=== PATIENT | female | born 2000 | race Caucasian/White ===

== ENCOUNTER 2020-07-04 01:27 | Emergency (ER) | payer BC ==
--- NOTE | 2020-07-04 02:22 | EDM.PDOC ---
ED HPI GENERAL MEDICAL PROBLEM - General Chief Complaint: Abdominal Pain Stated Complaint: POSSIBLE C-DIF HAS HISTORY Time Seen by Provider: 07/04/20 01:40 Source of Information: Reports: Patient History Limitations: Reports: No Limitations - History of Present Illness INITIAL COMMENTS - FREE TEXT/NARRATIVE: Ms. Rogers is a pleasant 19-year-old woman who now presents the ED with a concern of having C. difficile. She states that she was originally diagnosed with C. difficile in February 2018, and that she has been diagnosed with it 5 or 6 times since, although she does not know what type of tests were used to make that diagnosis - whether by NAAT, detection of C. difficile toxin by PCR, or by culture. She states that her most recent diagnosis was around 05/13/2020, that she was on oral vancomycin from then through approximately 06/20/2020. She states that she has been experiencing mucousy bowel movements for the past 4 days, and abdominal cramps since yesterday, 07/03/2020. She has had nausea and a decreased appetite, but no vomiting. No recent fever. No urinary symptoms. She states that she had a leftover tablet of oral vancomycin, therefore took that around 20:00 last night. Here in the ED, the patient is found to be mildly tachycardic at 109 bpm, otherwise, she is hemodynamically stable, afebrile, saturating 97% on room air. Other than her recurrent diarrhea issues, the patient denies having a recent fever, chills, sore throat, ear pain, nasal or sinus congestion, cough, dyspnea, chest pain, palpitations, vomiting, constipation, urinary symptoms, recent weight gain or weight loss, recent bloody bowel movements or black bowel movements, recent joint aches, headaches, or rashes. The patient does not have a PCP. Her Field Assessor is Dr. Steev Leroy, in [place], [place]. She has not received an influenza vaccine this season, and declined an offer to get one here in the ED. Abdominal Pain Score (Numeric/FACES): 7 - Related Data Allergies Allergy/AdvReac Type Severity Reaction Status Date / Time No Known Allergies Allergy Verified 07/04/20 01:44 Past Medical History Respiratory History: Reports: Asthma (suspected, not tested) [employer] WORK[employer] History: Reports: Endometriosis (suspected, not confirmed) Musculoskeletal History: Reports: Fracture (left ankle) - Infectious Disease History Infectious Disease History: Reports: C-Difficile, Chicken Pox, Shingles (suspected, at 17 yrs old) - Past Surgical History HEENT Surgical History: Reports: Eye Surgery (left corneal scar removal), Oral Surgery (dental extractons) Musculoskeletal Surgical History: Reports: Other (See Below) (Left ankle fx resetting x 2) Social & Family History - Tobacco Use Tobacco Use Status *Q: Never Tobacco User Second Hand Smoke Exposure: No - Caffeine Use Caffeine Use: Reports: None - Alcohol Use Alcohol Use History: Yes Alcohol Use Frequency: Socially - Recreational Drug Use Recreational Drug Use: Yes Drug Use in Last 12 Months: Yes Recreational Drug Type: Reports: Marijuana/Hashish (smokes about once a year, last around 07/01/2020) - Living Situation & Occupation Living situation: Reports: Single, Other (Roomate) Occupation: Student ([employer]) ED ROS GENERAL - Review of Systems Review Of Systems: Comprehensive ROS is negative, except as noted in HPI. ED EXAM, GI/ABD - Physical Exam Exam: See Below Exam Limited By: No Limitations General Appearance: Alert, No Apparent Distress, Thin Eyes: Bilateral: Normal Appearance, EOMI Ears: Normal External Exam, Hearing Grossly Normal Nose: Normal Inspection Throat/Mouth: Normal Inspection, Normal Lips, Normal Voice, No Airway Compromise Head: Atraumatic, Normocephalic Neck: Normal Inspection, Full Range of Motion Respiratory/Chest: No Respiratory Distress, Lungs Clear, Normal Breath Sounds, No Accessory Muscle Use Cardiovascular: Normal Peripheral Pulses, No Edema, No Gallop, No JVD, No Murmur, No Rub, Tachycardia (regular) GI/Abdominal Exam: Normal Bowel Sounds, Soft, No Organomegaly, No Distention, No Abnormal Bruit, No Mass, Tender (generalized, non-focal) Back Exam: Normal Inspection, Full Range of Motion, NT Extremities: Normal Inspection, Normal Range of Motion, No Pedal Edema, Normal Capillary Refill Neurological: Alert, Oriented, Normal Cognition, No Motor/Sensory Deficits Psychiatric: Normal Affect Skin Exam: Warm, Dry, Intact, Normal Color, No Rash Course - Vital Signs Last Recorded V/S: Last Vital Signs Temp 37.6 C 07/04/20 01:40 Pulse 109 H 07/04/20 01:40 Resp 16 07/04/20 01:40 BP 116/93 H 07/04/20 01:40 Pulse Ox 97 07/04/20 01:40 Orthostatic Blood Pressure [ 125/81 Standing] Orthostatic Blood Pressure [ 120/81 Sitting] Orthostatic Blood Pressure [ 114/68 Supine] - Orders/Labs/Meds Orders: Active Orders 24 hr Category Date Time Status Orthostatic Vital Signs [RC] STAT Care 07/04/20 02:19 Active Orthostatic Vital Signs [RC] STAT Care 07/04/20 03:33 Active Labs: Laboratory Tests 07/04/20 07/04/20 Range/Units 02:00 02:00 WBC 11.06 H (3.98-10.04) K/mm3 RBC 4.67 (3.98-5.22) M/mm3 Hgb 14.1 (11.2-15.7) gm/dl Hct 43.2 (34.1-44.9) % MCV 92.5 (79.4-94.8) fl MCH 30.2 (25.6-32.2) pg MCHC 32.6 (32.2-35.5) g/dl RDW Std Deviation 43.1 (36.4-46.3) fL Plt Count 341 (182-369) K/mm3 MPV 9.6 (9.4-12.3) fl Neutrophils % (Manual) 58 (40-60) % Band Neutrophils % 0 (0-10) % Lymphocytes % (Manual) 37 (20-40) % Atypical Lymphs % 0 % Monocytes % (Manual) 3 (2-10) % Eosinophils % (Manual) 2 (0.7-5.8) % Basophils % (Manual) 0 L (0.1-1.2) Platelet Estimate Adequate RBC Morph Comment Normal Sodium 139 (136-145) mEq/L Potassium 3.5 (3.5-5.1) mEq/L Chloride 104 (98-107) mEq/L Carbon Dioxide 24 (21-32) mEq/L Anion Gap 14.5 (5-15) BUN 13 (7-18) mg/dL Creatinine 0.9 (0.55-1.02) mg/dL Est Cr Clr Drug Dosing 83.30 mL/min Estimated GFR (MDRD) > 60 (>60) mL/min BUN/Creatinine Ratio 14.4 (14-18) Glucose 93 (74-106) mg/dL Calcium 9.1 (8.5-10.1) mg/dL Magnesium 1.8 (1.8-2.4) mg/dl Total Bilirubin 0.7 (0.2-1.0) mg/dL AST 13 L (15-37) U/L ALT 18 (14-59) U/L Alkaline Phosphatase 52 (46-116) U/L Total Protein 7.8 (6.4-8.2) g/dl Albumin 4.0 (3.4-5.0) g/dl Globulin 3.8 gm/dL Albumin/Globulin Ratio 1.1 (1-2) Meds: Medications Discontinued Medications Generic Name Dose Route Start Last Admin Trade Name Freq PRN Reason Stop Dose Admin Sodium Chloride 1,000 mls @ 999 mls/hr 07/04/20 03:33 07/04/20 03:48 Normal Saline IV 07/04/20 04:33 999 mls/hr ONETIME ONE Administration Ibuprofen 600 mg 07/04/20 02:57 07/04/20 03:16 Motrin PO 07/04/20 02:58 600 mg ONETIME ONE Administration - Re-Assessments/Exams Free Text/Narrative Re-Assessment/Exam: 07/04/20 02:18 As above, the patient has had recurrent episodes of abdominal cramps and diarrhea since February 2018, with a diagnosis of C. difficile at that time, and 5-6 diagnoses since, most recently in late April 2020, treated with oral vancomycin since approximately 05/13/2020 through 06/20/2020, with an additional tablet that she took around 20:00 last night. She states that she has had about 4 days of abdominal cramps with mucousy diarrhea, nausea, and decreased appetite. No recent fever. She is slightly tachycardic here in the ED, and complains of generalized abdominal tenderness to palpation. I have ordered a work-up that includes several blood tests, and orthostatics, however, the patient does not feel that she can give us a stool sample at this time. If she is able to, I will order stool for C. difficile. 07/04/20 03:33 The patient's CBC is remarkable for slight leukocytosis of 11.06, but with 0% bandemia, and the remainder of her CBC being unremarkable. Her CMP is unremarkable. Her magnesium level is within normal limits at 1.8. Her orthostatics are positive. Based on the above, I have ordered a 1 L bolus of NS, to be followed by repeat orthostatics. 07/04/20 05:00 Following 1 L of IV fluid, the patient is no longer orthostatic. She has not been able to provide us a stool sample. 07/04/20 05:03 Test results discussed with the patient. As above, today's work-up, other than the finding of orthostasis, is completely unremarkable. The patient's inability to provide a stool sample speaks strongly against the diagnosis of C. difficile, however, I offered to provide the patient with a stool sample cup that she could take to her PCPs office if she was able to provide a sample. The patient prefers to just follow-up with her PCP later today. Departure - Departure Time of Disposition: 05:04 Disposition: Home, Self-Care 01 Condition: Good Clinical Impression: Abdominal cramps, Abnormal bowel movement, Orthostasis - Discharge Information *PRESCRIPTION DRUG MONITORING PROGRAM REVIEWED*: Not Applicable *COPY OF PRESCRIPTION DRUG MONITORING REPORT IN PATIENT JESUS: Not Applicable Referrals: PCP,None [Primary Care Provider] - Forms: ED Department Discharge Additional Instructions: You were seen in the emergency room after experiencing 4 days of mucousy bowel movements with abdominal cramps since yesterday, along with nausea and a decreased appetite. Work-up in the ER included positional blood pressure checks and several blood tests. Your blood work was entirely normal, with no suggestion of anemia or infection. Your heart rate umberto excessively between lying and standing, a condition known as orthostasis. You were given 1 L of IV fluid, and your heart rate normalized. Going forward, we recommend that you stay adequately hydrated. Gatorade or Powerade are best. Unable to provide a stool sample to test for C. difficile. We recommend that you follow-up with your Field Assessor, Dr. Steve Leroy, for further evaluation in that regard. If any other problems, please do not hesitate to return to the ER. Sepsis Event Note (ED) - Evaluation Sepsis Screening Result: No Definite Risk - Focused Exam Vital Signs: Vital Signs Temp Pulse Resp BP Pulse Ox 07/04/20 01:40 37.6 C 109 H 16 116/93 H 97 - My Orders Last 24 Hours: My Active Orders 07/04/20 02:19 Orthostatic Vital Signs [RC] STAT 07/04/20 03:33 Orthostatic Vital Signs [RC] STAT - Assessment/Plan Last 24 Hours: My Active Orders 07/04/20 02:19 Orthostatic Vital Signs [RC] STAT 07/04/20 03:33 Orthostatic Vital Signs [RC] STAT
[2020-07-04] MEDS ORDERED: Ibuprofen 600 MG Tab PO ONE (02:57)
[2020-07-04] MEDS ORDERED: Sodium Chloride 0.9% 1,000 ML IV ONE (03:33)
== END 2020-07-04 05:16 | disposition home or self-care (01) ==
LOC: JD.ED 01:27
DX: R10.9 Unspecified abdominal pain (principal); R19.15 Other abnormal bowel sounds; J45.909 Unspecified asthma, uncomplicated
CPT/HCPCS: 36415; 80053; 83735; 85007; 85027; 99284; A9270; J7030; 99283

== ENCOUNTER 2024-01-27 07:00 | Inpatient (IN) | payer OTHER, BC ==
[2024-01-27] MEDS ORDERED: Sodium Chloride 0.9% 10 ML Syringe FLUSH PRN (07:13)
[2024-01-27] MEDS ORDERED: Lidocaine 1% 50 ML MDV INJECT PRN (07:13)
[2024-01-27] MEDS ORDERED: Oxytocin/0.9 % Sodium Chloride 30 UNIT/500 ML BAG IV SCH (07:15)
[2024-01-27 07:39] LABS: BASOPHILS PERCENT AUTO 0.3 % (0.0-1.0); EOSINOPHILS ABSOLUTE AUTO 0.2 K/mm3 (0.0-0.4); EOSINOPHILS PERCENT AUTO 1.5 % (0.0-6.0); HEMATOCRIT 32.2 % (37.0-47.0); HEMOGLOBIN 10.5 gm/dl (12.0-16.0); IMMATURE GRAN ABSOLUTE AUTO 0.26 K/mm3 (0.00-0.05); LYMPHOCYTES ABSOLUTE AUTO 2.3 K/mm3 (1.0-4.8); LYMPHOCYTES PERCENT AUTO 17.7 % (24.0-44.0); MEAN CORPUSCULAR HEMOGLOBIN 29.7 pg (28.0-32.0); MEAN CORPUSCULAR HGB CONC 32.6 g/dl (32.0-36.0); MEAN PLATELET VOLUME 10.8 fl (9.4-12.3); MONOCYTES ABSOLUTE AUTO 1.1 K/mm3 (0.0-0.8); MONOCYTES PERCENT AUTO 8.1 % (0.0-8.0); NEUTROPHILS ABSOLUTE AUTO 9.2 K/mm3 (1.8-7.7); NEUTROPHILS PERCENT AUTO 70.4 % (41.0-71.0); PLATELET COUNT,PLT 216 K/mm3 (150-400); RED BLOOD CELL COUNT 3.54 M/mm3 (4.10-5.30); WHITE BLOOD CELL COUNT,WBC 13.01 K/mm3 (3.9-11.3)
[2024-01-27] MEDS: Misoprostol 25 MCG (1/4 of 100 MCG) Tab VAG ONE ×2 (08:10→16:32)
[2024-01-27 08:18] LABS: A/G RATIO 0.7 (1-2); ALANINE AMINOTRANSFERASE,ALT 16 U/L (14-59); ALBUMIN 2.5 g/dl (3.4-5.0); ALKALINE PHOSPHATASE 143 U/L (46-116); ANION GAP 9.8 (5-15); ASPARTATE AMNIOTRANSFERASE,AST 15 U/L (15-37); BILIRUBIN TOTAL 0.3 mg/dL (0.2-1.0); BLOOD UREA NITROGEN,BUN 9 mg/dL (7-18); CALCIUM 8.5 mg/dL (8.5-10.1); CARBON DIOXIDE,CO2 24 mEq/L (21-32); CHLORIDE,CL 105 mEq/L (98-107); CREATININE 0.6 mg/dL (0.55-1.02); ESTIMATED GFR 129 mL/min (>60); GLUCOSE RANDOM 96 mg/dL (70-99); POTASSIUM,K 3.8 mEq/L (3.5-5.1); PROTEIN TOTAL,TP 6.2 g/dl (6.4-8.2); SODIUM,NA 135 mEq/L (136-145)
[2024-01-27] MEDS: Misoprostol 25 MCG (1/4 of 100 MCG) Tab VAG SCH (12:36)
[2024-01-27] MEDS: Ondansetron 4 MG/2 ML SDV IVPUSH PRN (20:49)
[2024-01-27] MEDS: Nalbuphine 10 MG/1 ML Vial IVPUSH ONE (20:50)
[2024-01-28] MEDS: Penicillin G Potassium 5 MILLUNITS in Sodium Chloride 0.9% 100 ML IV SCH
[2024-01-28] MEDS: Lactated Ringers 1,000 ML IV SCH (00:10)
[2024-01-28] MEDS: Nalbuphine 10 MG/1 ML Vial IVPUSH PRN (00:19)
[2024-01-28] MEDS: Penicillin G Potassium 2.5 MILLUNITS in Sodium Chloride 0.9% 100 ML IV SCH ×2 (00:28→08:17)
[2024-01-28] MEDS: Sodium Chloride 0.9% 10 ML Syringe FLUSH SCH (00:32)
[2024-01-28] MEDS ORDERED: diphenhydrAMINE 50 MG/ML SDV IVPUSH PRN (01:17)
[2024-01-28] MEDS ORDERED: ePHEDrine 50 MG/ML SDV IVPUSH PRN (01:17)
[2024-01-28] MEDS: Bupivacaine/fentaNYL/NS 100 ML Bag EPIDUR PRN (01:26)
[2024-01-28] MEDS: Penicillin G Potassium 5,000,000 Unit Vial ONE (03:35)
[2024-01-28] MEDS: Oxytocin/0.9 % Sodium Chloride 30 UNIT/500 ML BAG IV SCH (10:30)
[2024-01-28] MEDS: Ibuprofen 800 MG Tab PO SCH (12:00)
[2024-01-28] MEDS: Benzocaine/Menthol 20%-0.5% Spray 78 GM Cannister TOP PRN (13:44)
[2024-01-28] MEDS: Witch Hazel Medicated Pads 40/Jar TOP PRN (13:44)
[2024-01-28] MEDS: Acetaminophen 325 MG Tab PO PRN (16:47)
[2024-01-29 06:31] LABS: HEMATOCRIT 20.7 % (37.0-47.0); MEAN CORPUSCULAR HEMOGLOBIN 29.7 pg (28.0-32.0); MEAN CORPUSCULAR HGB CONC 31.9 g/dl (32.0-36.0); MEAN CORPUSCULAR VOLUME 93.2 fl (83.0-99.0); MEAN PLATELET VOLUME 10.8 fl (9.4-12.3); PLATELET COUNT,PLT 177 K/mm3 (150-400); RED BLOOD CELL COUNT 2.22 M/mm3 (4.10-5.30); WHITE BLOOD CELL COUNT,WBC 17.29 K/mm3 (3.9-11.3)
[2024-01-29 07:34] LABS: HEMOGLOBIN 6.6 gm/dl (12.0-16.0)
[2024-01-29] MEDS: Sodium Chloride 0.9% 500 ML IV ONE (11:03)
== END 2024-01-29 19:20 | disposition home or self-care (01) | DRG 805 ==
LOC: JD.OBCHECK 07:00 → JD.OB 07:07 → OBSVTOIN 01-28 10:36 → JD.OB 01-28 10:37
PROVIDERS: ADMIT Obstetrics & Gynecology; ATTEND Obstetrics & Gynecology
PROC: 10E0XZZ Delivery of Products of Conception, External Approach (ICD-10-PCS; principal; 2024-01-28)
PROC: 0KQM0ZZ Repair Perineum Muscle, Open Approach (ICD-10-PCS; 2024-01-28)
PROC: 3E0334Z Introduction of Serum, Toxoid and Vaccine into Peripheral Vein, Percutaneous Approach (ICD-10-PCS; 2024-01-28)
PROC: 3E0R3BZ Introduction of Anesthetic Agent into Spinal Canal, Percutaneous Approach (ICD-10-PCS; 2024-01-28)
PROC: 00HU33Z Insertion of Infusion Device into Spinal Canal, Percutaneous Approach (ICD-10-PCS; 2024-01-28)
PROC: 3E033VJ Introduction of Other Hormone into Peripheral Vein, Percutaneous Approach (ICD-10-PCS; 2024-01-28)
PROC: 30233N1 Transfusion of Nonautologous Red Blood Cells into Peripheral Vein, Percutaneous Approach (ICD-10-PCS; 2024-01-28)
DX: O26.643 Intrahepatic cholestasis of pregnancy, third trimester (principal); K83.1 Obstruction of bile duct; Z37.0 Single live birth; D62 Acute posthemorrhagic anemia; Z3A.38 38 weeks gestation of pregnancy; O99.824 Streptococcus B carrier state complicating childbirth; O26.893 Other specified pregnancy related conditions, third trimester; O99.52 Diseases of the respiratory system complicating childbirth; J45.909 Unspecified asthma, uncomplicated; O69.81X0 Labor and delivery complicated by cord around neck, without compression, not applicable or unspecified; O70.1 Second degree perineal laceration during delivery; O90.81 Anemia of the puerperium; Z67.20 Type B blood, Rh positive
CPT/HCPCS: 36415; 36430; 51701; 51702; 59025; 59409; 80053; 85025; 85027; 86592; 86850; 86870; 86900; 86901; 86922; A9270-GY; J2300; J2405; J2540; J3490; J7040; J7120; J7999; P9016

== ENCOUNTER 2024-05-06 18:29 | Emergency (ER) | payer OTHER, BC ==
[2024-05-06] MEDS: Albuterol/Ipratropium 3.0-0.5 MG/3 ML Neb Soln NEB ONE (19:24)
[2024-05-06] MEDS: methylPREDNISolone Sodium Succinate 125 MG/2 ML SDV IVPUSH ONE (19:34)
[2024-05-06 19:50] LABS: BASOPHILS ABSOLUTE AUTO 0.1 K/mm3 (0.0-0.2); BASOPHILS PERCENT AUTO 0.5 % (0.0-1.0); EOSINOPHILS ABSOLUTE AUTO 0.2 K/mm3 (0.0-0.4); EOSINOPHILS PERCENT AUTO 2.4 % (0.0-6.0); HEMATOCRIT 39.3 % (37.0-47.0); HEMOGLOBIN 13.1 gm/dl (12.0-16.0); IMMATURE GRAN ABSOLUTE AUTO 0.02 K/mm3 (0.00-0.05); IMMATURE GRAN PERCENT AUTO 0.2 % (0.0-0.4); LYMPHOCYTES ABSOLUTE AUTO 3.8 K/mm3 (1.0-4.8); LYMPHOCYTES PERCENT AUTO 41.1 % (24.0-44.0); MEAN CORPUSCULAR HEMOGLOBIN 25.1 pg (28.0-32.0); MEAN CORPUSCULAR HGB CONC 33.3 g/dl (32.0-36.0); MEAN CORPUSCULAR VOLUME 75.4 fl (83.0-99.0); MONOCYTES ABSOLUTE AUTO 0.8 K/mm3 (0.0-0.8); MONOCYTES PERCENT AUTO 8.3 % (0.0-8.0); NEUTROPHILS ABSOLUTE AUTO 4.4 K/mm3 (1.8-7.7); NEUTROPHILS PERCENT AUTO 47.5 % (41.0-71.0); PLATELET COUNT,PLT 391 K/mm3 (150-400); RED BLOOD CELL COUNT 5.21 M/mm3 (4.10-5.30); WHITE BLOOD CELL COUNT,WBC 9.33 K/mm3 (3.9-11.3)
[2024-05-06 20:20] LABS: A/G RATIO 1.1 (1-2); ALBUMIN 4.3 g/dl (3.4-5.0); ANION GAP 16.4 (5-15); BILIRUBIN TOTAL 0.4 mg/dL (0.2-1.0); BUN/CREATININE RATIO 18.9 (14-18); CALCIUM 9.8 mg/dL (8.5-10.1); CREATININE 0.9 mg/dL (0.55-1.02); EST CRCL DRUG DOSING (CG) 97.88 mL/min; POTASSIUM,K 3.4 mEq/L (3.5-5.1); PROTEIN TOTAL,TP 8.2 g/dl (6.4-8.2)
== END 2024-05-06 20:56 | disposition home or self-care (01) ==
LOC: JD.ED 18:29
DX: J45.909 Unspecified asthma, uncomplicated (principal); Z91.018 Allergy to other foods; Z79.51 Long term (current) use of inhaled steroids; Z79.52 Long term (current) use of systemic steroids; Z79.899 Other long term (current) drug therapy
CPT/HCPCS: 36415; 71046; 80053; 85025; 94640; 96374; 99285; J2919; 99284; J7620-GY

== ENCOUNTER 2024-08-03 15:43 | Emergency (ER) | payer OTHER, BC ==
[2024-08-03 17:06] LABS: BASOPHILS ABSOLUTE AUTO 0.1 K/mm3 (0.0-0.2); BASOPHILS PERCENT AUTO 0.5 % (0.0-1.0); EOSINOPHILS ABSOLUTE AUTO 0.3 K/mm3 (0.0-0.4); EOSINOPHILS PERCENT AUTO 2.7 % (0.0-6.0); HEMATOCRIT 40.6 % (37.0-47.0); HEMOGLOBIN 13.5 gm/dl (12.0-16.0); IMMATURE GRAN ABSOLUTE AUTO 0.04 K/mm3 (0.00-0.05); IMMATURE GRAN PERCENT AUTO 0.4 % (0.0-0.4); LYMPHOCYTES ABSOLUTE AUTO 3.1 K/mm3 (1.0-4.8); LYMPHOCYTES PERCENT AUTO 29.4 % (24.0-44.0); MEAN CORPUSCULAR HEMOGLOBIN 27.5 pg (28.0-32.0); MEAN CORPUSCULAR HGB CONC 33.3 g/dl (32.0-36.0); MEAN CORPUSCULAR VOLUME 82.7 fl (83.0-99.0); MEAN PLATELET VOLUME 10.5 fl (9.4-12.3); MONOCYTES ABSOLUTE AUTO 0.9 K/mm3 (0.0-0.8); MONOCYTES PERCENT AUTO 8.6 % (0.0-8.0); NEUTROPHILS ABSOLUTE AUTO 6.2 K/mm3 (1.8-7.7); NEUTROPHILS PERCENT AUTO 58.4 % (41.0-71.0); PLATELET COUNT,PLT 337 K/mm3 (150-400); RED BLOOD CELL COUNT 4.91 M/mm3 (4.10-5.30); WHITE BLOOD CELL COUNT,WBC 10.52 K/mm3 (3.9-11.3)
[2024-08-03 17:16] LABS: A/G RATIO 1.1 (1-2); ALANINE AMINOTRANSFERASE,ALT 15 U/L (14-59); ALBUMIN 3.9 g/dl (3.4-5.0); ALKALINE PHOSPHATASE 91 U/L (46-116); ANION GAP 12.6 (5-15); ASPARTATE AMNIOTRANSFERASE,AST 11 U/L (15-37); BILIRUBIN TOTAL 0.7 mg/dL (0.2-1.0); BLOOD UREA NITROGEN,BUN 17 mg/dL (7-18); CALCIUM 9.1 mg/dL (8.5-10.1); CARBON DIOXIDE,CO2 24 mEq/L (21-32); CHLORIDE,CL 103 mEq/L (98-107); ESTIMATED GFR 81 mL/min (>60); GLUCOSE RANDOM 85 mg/dL (70-99); POTASSIUM,K 3.6 mEq/L (3.5-5.1); PROTEIN TOTAL,TP 7.5 g/dl (6.4-8.2); SODIUM,NA 136 mEq/L (136-145); TROPONIN I HIGH SENSITIVITY 5 pg/mL (<=51)
== END 2024-08-03 17:50 | disposition home or self-care (01) ==
LOC: JD.ED 15:43
DX: F41.9 Anxiety disorder, unspecified (principal); Z91.018 Allergy to other foods; Z79.51 Long term (current) use of inhaled steroids; Z79.899 Other long term (current) drug therapy
CPT/HCPCS: 36415; 71046; 71046-26; 80053; 83880; 84484; 85025; 85379; 93005; 93010; 99284; 99285